=== PATIENT | female | born 2000 | race African-American/Black ===

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

== ENCOUNTER 2021-03-30 10:53 | Emergency (ER) | payer MEDICAID ==
[~2021-03-30] VITALS: Ht 165.1 cm; Wt 113.0 kg
[2021-03-30] MEDS ORDERED: KETOROLAC 30MG/ML VIAL IV STA (13:02)
[2021-03-30 15:27] LABS: EOSINOPHILS % 5.3 % (0.0-5.0); HEMATOCRIT. 40.2 % (36.0-48.0); HEMOGLOBIN. 13.4 g/dL (12.0-16.0); LYMPHOCYTES % 40.3 % (20.0-50.0); MEAN CORPUSCULAR VOLUME 81.2 fL (81.0-99.0); MEAN PLATELET VOLUME 7.5 fl (7.4-10.4); MONOCYTES % 7.9 % (2.0-8.0); NEUTROPHILS % 45.5 % (40.0-76.0); PLATELET 494 x1000/uL (130-400); RED BLOOD CELL COUNT 4.95 mill/uL (4.2-5.4); RED CELL DISTRIBUTION WIDTH 14.8 % (11.6-14.6)
[2021-03-30 15:29] LABS: CHLORIDE 104 mEq/L (98-107)
[2021-03-30 15:30] VITALS: BP 116/62
[2021-03-30 15:30] LABS: CLARITY URINE CLEAR (CLEAR); COLOR URINE YELLOW (YELLOW); KETONES URINE NEGATIVE (NEGATIVE); LEUKOCYTE ESTERASE URINE NEGATIVE (NEGATIVE); NITRITE URINE NEGATIVE (NEGATIVE); OCCULT BLOOD URINE NEGATIVE (NEGATIVE); PH URINE 6.5 (4.5-8.0); PROTEIN URINE NEGATIVE (NEGATIVE); SPECIFIC GRAVITY URINE 1.021 (1.005-1.030); UROBILINOGEN URINE 0.2 E.U./dL (0.2-1.0)
[2021-03-30 15:35] LABS: HCG SCREEN NEGATIVE; PROTHROMBIN TIME 11.1 sec (9.6-11.0)
== END 2021-03-30 16:02 | disposition home or self-care (01) ==
LOC: ER 11:40
DX: N83.201 Unspecified ovarian cyst, right side (principal); N83.9 Noninflammatory disorder of ovary, fallopian tube and broad ligament, unspecified
CPT/HCPCS: 36415; 76830; 76856; 80053; 81003; 83690; 84703; 85025; 85610; 96374; 99284; J1885; Z7610